=== PATIENT | female | born 1945 | race Caucasian/White ===

== ENCOUNTER 2016-07-30 10:13 | Outpatient (CLI) | payer MEDICARE, OTHER | END 2016-07-30 10:14 | disposition home or self-care (01) | DX: Z13.820 Encounter for screening for osteoporosis (principal); M85.88 Other specified disorders of bone density and structure, other site; Z78.0 Asymptomatic menopausal state ==

== ENCOUNTER 2016-07-30 10:15 | Outpatient (CLI) | payer MEDICARE, OTHER | END 2016-07-30 10:16 | disposition home or self-care (01) | DX: Z12.31 Encounter for screening mammogram for malignant neoplasm of breast (principal) ==

== ENCOUNTER 2017-04-27 10:17 | Outpatient (CLI) | payer MEDICARE, OTHER ==
[2017-04-27 10:49] LABS: BASOPHILS # (AUTO) 0.1 10^3/uL (0.0-0.1); BASOPHILS % (AUTO) 1.4 %; EOSINOPHILS # (AUTO) 0.2 10^3/uL (0.0-0.7); EOSINOPHILS % (AUTO) 3.8 %; HCT - HEMATOCRIT 38.7 % (37.0-47.0); LYMPHOCYTES # (AUTO) 2.2 10^3/uL (1.5-3.5); LYMPHOCYTES % (AUTO) 35.4 %; MEAN CORPUSCULAR HEMOGLOBIN 30.6 pg (27.0-31.0); MEAN CORPUSCULAR HGB CONC 33.7 g/dL (32.0-36.0); MEAN CORPUSCULAR VOLUME 90.6 fL (81.0-99.0); MEAN PLATELET VOLUME 7.8 fL (7.9-10.8); MONOCYTES # (AUTO) 0.4 10^3/uL (0.0-1.0); MONOCYTES % (AUTO) 7.1 %; NEUTROPHILS # (AUTO) 3.2 10^3/uL (1.5-6.6); NEUTROPHILS % (AUTO) 52.3 %; RED BLOOD COUNT 4.27 10^6/uL (4.20-5.40); RED CELL DISTRIBUTION WIDTH 13.7 % (12.0-15.0); UNCORRECTED WHITE BLOOD COUNT 6.1 x10^3/uL; WHITE BLOOD COUNT 6.1 x10^3/uL (4.8-10.8)
[2017-04-27 11:05] LABS: ALBUMIN/GLOBULIN RATIO 1.3 (1.0-2.2); BILIRUBIN,TOTAL 0.6 mg/dL (0.2-1.0); BUN - BLOOD UREA NITROGEN 29 mg/dL (6-20); CALCIUM 9.9 mg/dL (8.5-10.3); CARBON DIOXIDE - CO2 27 mmol/L (21-32); CHLORIDE 99 mmol/L (101-111); CHOL/HDL RATIO 7.9 (<4.4); CHOLESTEROL 365 mg/dL; CREATININE 1.1 mg/dL (0.4-1.0); GFR - MDRD 49 (>89); GLUCOSE 118 mg/dL (70-100); HDL CHOLESTEROL 46 mg/dL; SODIUM 137 mmol/L (135-145); TOTAL PROTEIN 7.5 g/dL (6.7-8.2); TRIGLYCERIDES 502 mg/dL
[2017-04-27 11:17] LABS: THYROID STIMULATING HORMONE 2.23 uIU/mL (0.34-5.60)
[2017-04-27 11:25] LABS: HEMOGLOBIN A1C 0.69 g/dL; LDL CHOLESTEROL,DIRECT 180 mg/dL
[2017-04-27 12:35] LABS: FOLATE > 49.60 ng/mL (5.90 - >24.8)
== END 2017-04-27 10:18 | disposition home or self-care (01) ==
LOC: LAB 10:17
PROVIDERS: ATTEND Physician Assistant Medical
DX: I10 Essential (primary) hypertension (principal); R73.01 Impaired fasting glucose; E78.5 Hyperlipidemia, unspecified; R41.3 Other amnesia; R25.2 Cramp and spasm; R53.83 Other fatigue
CPT/HCPCS: 36415; 80053; 80061; 82607; 82746; 83036; 83735; 84443; 85025

== ENCOUNTER 2017-08-26 09:44 | Outpatient (CLI) | payer MEDICARE, OTHER ==
[2017-08-26 10:10] LABS: BASOPHILS # (AUTO) 0.1 10^3/uL (0.0-0.1); BASOPHILS % (AUTO) 2.4 %; EOSINOPHILS # (AUTO) 0.2 10^3/uL (0.0-0.7); EOSINOPHILS % (AUTO) 4.4 %; HGB - HEMOGLOBIN 13.8 g/dL (12.0-16.0); LYMPHOCYTES # (AUTO) 2.2 10^3/uL (1.5-3.5); LYMPHOCYTES % (AUTO) 40.3 %; MEAN CORPUSCULAR HEMOGLOBIN 31.2 pg (27.0-31.0); MEAN CORPUSCULAR HGB CONC 34.4 g/dL (32.0-36.0); MEAN CORPUSCULAR VOLUME 90.6 fL (81.0-99.0); MEAN PLATELET VOLUME 7.5 fL (7.9-10.8); MONOCYTES # (AUTO) 0.4 10^3/uL (0.0-1.0); MONOCYTES % (AUTO) 7.6 %; NEUTROPHILS # (AUTO) 2.5 10^3/uL (1.5-6.6); NEUTROPHILS % (AUTO) 45.3 %; PLT - PLATELET COUNT 318 10^3/uL (130-450); RED BLOOD COUNT 4.43 10^6/uL (4.20-5.40); RED CELL DISTRIBUTION WIDTH 13.7 % (12.0-15.0); WHITE BLOOD COUNT 5.4 x10^3/uL (4.8-10.8)
[2017-08-26 10:34] LABS: HEMOGLOBIN A1C 0.68 g/dL; HEMOGLOBIN A1C % 6.3 % (4.6-6.2)
[2017-08-26 10:35] LABS: ALBUMIN 4.5 g/dL (3.2-5.5); ALBUMIN/GLOBULIN RATIO 1.5 (1.0-2.2); ALKALINE PHOSPHATASE 53 IU/L (42-121); ALT ALANINE AMINOTRANSFERASE 26 IU/L (10-60); AST ASPARTATE AMINOTRANSFERASE 26 IU/L (10-42); BILIRUBIN,TOTAL 0.7 mg/dL (0.2-1.0); BUN - BLOOD UREA NITROGEN 25 mg/dL (6-20); CALCIUM 9.7 mg/dL (8.5-10.3); CARBON DIOXIDE - CO2 28 mmol/L (21-32); CHLORIDE 99 mmol/L (101-111); CHOL/HDL RATIO 7.5 (<4.4); CHOLESTEROL 352 mg/dL; GFR - MDRD 54 (>89); GLUCOSE 117 mg/dL (70-100); HDL CHOLESTEROL 47 mg/dL; SODIUM 138 mmol/L (135-145); TOTAL PROTEIN 7.5 g/dL (6.7-8.2)
[2017-08-26 10:59] LABS: LDL CHOLESTEROL,DIRECT 187 mg/dL
== END 2017-08-26 09:45 | disposition home or self-care (01) ==
LOC: LAB 09:44
PROVIDERS: ATTEND Family Medicine
DX: I10 Essential (primary) hypertension (principal); E11.9 Type 2 diabetes mellitus without complications; E78.5 Hyperlipidemia, unspecified; F33.2 Major depressive disorder, recurrent severe without psychotic features
CPT/HCPCS: 36415; 80053; 80061; 82043; 83036; 83721; 84443; 85025

== ENCOUNTER 2017-12-17 12:34 | Outpatient (CLI) | payer MEDICARE, OTHER ==
--- NOTE | 2017-12-19 05:25 | MRI Report ---
Procedure Date: 12/17/2017 Accession Number: [id number] / [id number] Procedure: MRI - Brain W/O CPT Code: FULL RESULT: EXAM: MRI BRAIN WITHOUT CONTRAST EXAM DATE: 12/17/2017 01:48 PM. CLINICAL HISTORY: Transient ischemic attack, confusion, disorientation COMPARISON: Brain MRI 07/03/2012. TECHNIQUE: Multiplanar, multisequence T1-weighted and fluid-sensitive MR sequences of the brain were performed. Sequences optimized for routine evaluation. Other: None. IV Contrast: None. FINDINGS: Brain Volume: Normal for age. Parenchyma/Dura: No mass, acute infarct or hemorrhage. There is a single focus of increased T2 signal involving right frontal juxtacortical white matter, within normal limits for adults. Ventricles/Cisterns: No hydrocephalus. No abnormal extra-axial fluid collection or hemorrhage. Orbits: Symmetric and unremarkable. Sella Turcica: The pituitary gland, cavernous sinuses, suprasellar cistern and optic chiasm are unremarkable. IAC: Symmetric and unremarkable. Vasculature: Normal signal flow void is seen in the major arterial structures at the skull base. Sinuses: No acute appearing sinus disease. Bones: No focal pathologic appearing marrow signal changes. Other: None. IMPRESSION: 1. Normal brain MRI. RAD[facility]
== END 2017-12-17 12:35 | disposition home or self-care (01) ==
LOC: DI 12:34
PROVIDERS: ATTEND Family Medicine
DX: G45.9 Transient cerebral ischemic attack, unspecified (principal)
CPT/HCPCS: 70551

== ENCOUNTER 2017-12-17 15:15 | Outpatient (CLI) | payer MEDICARE, OTHER ==
--- NOTE | 2017-12-19 09:14 | Ultrasound Report ---
Procedure Date: 12/17/2017 Accession Number: [id number] / [id number] Procedure: US - Carotid Doppler Complete CPT Code: FULL RESULT: EXAM: CAROTID DOPPLER ULTRASOUND EXAM DATE: 12/17/2017 03:43 PM. CLINICAL HISTORY: TIA. COMPARISON: None. TECHNIQUE: Real-time sonographic vascular imaging was performed by the bottom loader through the carotid arterial system with a linear transducer utilizing color-flow, Doppler flow and spectral analysis. Multiple employee's representative static images were saved for review. FINDINGS: Right: RCCA Prox: PSV 70 cm/sec. RCCA Dist: PSV 69 cm/sec, EDV 22 cm/sec. RECA: PSV 91 cm/sec. R Bulb: PSV 49 cm/sec, EDV 19 cm/sec, ICA/CCA ratio 0.71. LYLY Prox: PSV 58 cm/sec, EDV 19 cm/sec, ICA/CCA ratio 0.80. LYLY Mid: PSV 52 cm/sec, EDV 21 cm/sec, ICA/CCA ratio 0.75. LYLY Dist: PSV 52 cm/sec, EDV 23 cm/sec, ICA/CCA ratio 0.75. RVA: PSV 52 cm/sec. RVA flow direction: Antegrade. Left: LCCA Prox: PSV 61 cm/sec. LCCA Dist: PSV 58 cm/sec, EDV 18 cm/sec. LECA: PSV 61 cm/sec. L Bulb: PSV 61 cm/sec, EDV 18 cm/sec, ICA/CCA ratio 1.0. LICA Prox: PSV 62 cm/sec, EDV 17 cm/sec, ICA/CCA ratio 1.0. LICA Mid: PSV 50 cm/sec, EDV 16 cm/sec, ICA/CCA ratio 0.86. LICA Dist: PSV 71 cm/sec, EDV 22 cm/sec, ICA/CCA ratio 1.2. LVA: PSV 26 cm/sec. LVA flow direction: Antegrade. Other: Calcified and noncalcified atheromatous plaque is noted particularly along the proximal left internal carotid artery and distal common carotid artery. IMPRESSION: No hemodynamically significant stenoses. Validated velocity measurements with angiographic measurements and velocity criteria are extrapolated from diameter data as defined by the Society of Radiologists in Ultrasound Consensus Conference Radiology 2003; 229;340-346. RADIA
== END 2017-12-17 23:59 | disposition home or self-care (01) ==
LOC: DI 15:15
PROVIDERS: ATTEND Family Medicine
DX: G45.9 Transient cerebral ischemic attack, unspecified (principal)
CPT/HCPCS: 93880

== ENCOUNTER 2018-01-23 09:25 | Outpatient (CLI) | payer MEDICARE, OTHER ==
[2018-01-23 09:52] LABS: BASOPHILS # (AUTO) 0.1 10^3/uL (0.0-0.1); BASOPHILS % (AUTO) 1.4 %; EOSINOPHILS # (AUTO) 0.2 10^3/uL (0.0-0.7); EOSINOPHILS % (AUTO) 3.9 %; HGB - HEMOGLOBIN 12.7 g/dL (12.0-16.0); LYMPHOCYTES # (AUTO) 1.8 10^3/uL (1.5-3.5); LYMPHOCYTES % (AUTO) 35.9 %; MEAN CORPUSCULAR HEMOGLOBIN 31.5 pg (27.0-31.0); MEAN CORPUSCULAR HGB CONC 33.4 g/dL (32.0-36.0); MEAN CORPUSCULAR VOLUME 94.5 fL (81.0-99.0); MEAN PLATELET VOLUME 7.4 fL (7.9-10.8); MONOCYTES # (AUTO) 0.5 10^3/uL (0.0-1.0); MONOCYTES % (AUTO) 8.9 %; NEUTROPHILS # (AUTO) 2.6 10^3/uL (1.5-6.6); NEUTROPHILS % (AUTO) 49.9 %; PLT - PLATELET COUNT 297 10^3/uL (130-450); RED BLOOD COUNT 4.03 10^6/uL (4.20-5.40); RED CELL DISTRIBUTION WIDTH 13.7 % (12.0-15.0); WHITE BLOOD COUNT 5.1 x10^3/uL (4.8-10.8)
[2018-01-23 10:08] LABS: HB2 TOTAL 13.4 g/dL; HEMOGLOBIN A1C 0.61 g/dL; HEMOGLOBIN A1C % 6.3 % (4.6-6.2)
[2018-01-23 10:13] LABS: ALBUMIN 4.3 g/dL (3.2-5.5); ALBUMIN/GLOBULIN RATIO 1.5 (1.0-2.2); ALKALINE PHOSPHATASE 44 IU/L (42-121); ALT ALANINE AMINOTRANSFERASE 31 IU/L (10-60); AST ASPARTATE AMINOTRANSFERASE 29 IU/L (10-42); CALCIUM 9.3 mg/dL (8.5-10.3); CARBON DIOXIDE - CO2 28 mmol/L (21-32); CHLORIDE 100 mmol/L (101-111); CHOLESTEROL 313 mg/dL; GFR - MDRD 54 (>89); GLUCOSE 102 mg/dL (70-100); HDL CHOLESTEROL 52 mg/dL; LDL CHOLESTEROL,CALCULATED 210 mg/dL; SODIUM 138 mmol/L (135-145); TOTAL PROTEIN 7.1 g/dL (6.7-8.2); VLDL CHOLESTEROL 51 mg/dL
[2018-01-23 11:21] LABS: BUN - BLOOD UREA NITROGEN 22 mg/dL (6-20)
== END 2018-01-23 09:26 | disposition home or self-care (01) ==
LOC: LAB 09:25
PROVIDERS: ATTEND Family Medicine
DX: E11.9 Type 2 diabetes mellitus without complications (principal)
CPT/HCPCS: 36415; 80053; 80061; 83036; 83721; 84443; 85025

== ENCOUNTER 2018-02-23 07:45 | Outpatient (CLI) | payer MEDICARE, OTHER ==
[2018-02-23 09:54] LABS: HB2 TOTAL 13.3 g/dL; HEMOGLOBIN A1C 0.56 g/dL
[2018-02-23] MEDS ORDERED: GADOBUTROL 10 MMOL/10 ML VIAL ONE (10:08)
[2018-02-23] MEDS ORDERED: GADOBUTROL 10 MMOL/10 ML VIAL IVP ONE (11:20)
--- NOTE | 2018-02-23 17:51 | MRI Report ---
Procedure Date: 02/23/2018 Accession Number: [id number] / [id number] Procedure: MRI - Angio Brain W/O (MRA) CPT Code: FULL RESULT: MR angiogram head Indication: 73-year-old female with confusion and tremor Technique: 3D time of flight MR angiography Comparison: 1. Neck MRA 02/23/2018 and unenhanced brain MRI 12/17/2017 Findings: The internal carotid arteries appear widely patent bilaterally. No ICA aneurysm is identified. 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 There is a dominant right A1 segment. An anterior communicating artery is demonstrated. There appears to be good flow related enhancement in the imaged A2 branches bilaterally. The middle cerebral arteries are unremarkable. No aneurysm is identified and there is no obvious occlusion or hemodynamically significant stenosis affecting main branches of either MCA. Flow-related enhancement is identified in the mid and upper V4 segments of hypoplastic, left vertebral artery. There appears to be absence of flow related enhancement in the proximal V4 segment and in the imaged V3 segment (see axial source images). This suggests the possibility of occlusion. However, review of source images for recent gadolinium-enhanced neck MRA suggests that the V3 and proximal V4 segments are probably patent. 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 Therefore, absence of flow related enhancement in the V3 and proximal V4 segments on this time of flight study likely relates to very slow flow rather than true occlusion. There is a large right vertebral artery which appears widely patent. Good flow related enhancement is seen in the right PICA. No definite left PICA is demonstrated. The left PICA territory may be supplied by the contralateral PICA or ipsilateral AICA (normal anatomical variants). The basilar artery, superior cerebellar arteries and posterior cerebral arteries appear widely patent. Neither posterior communicating artery is identified with certainty. Impression: 1. No significant pathology is identified involving main branches of the anterior circulation. 2. Absence of flow related enhancement in the V3 and proximal V4 segments of hypoplastic, left vertebral artery as described. Review of images from today's gadolinium-enhanced neck MRA suggests that this probably relates to slow flow, rather than occlusion of the V3 and proximal V4 segments. However, there probably is occlusion of the left vertebral artery at its origin (age indeterminate) with reconstitution in the V2 segment through collaterals. The absence of flow related enhancement on this time of flight MRA therefore appears to related to slow flow rather than occlusion. 3. Otherwise normal appearance of the intracranial vertebrobasilar circulation.
== END 2018-02-23 07:46 | disposition home or self-care (01) ==
LOC: DI 07:45
PROVIDERS: ATTEND Psychiatry & Neurology Neurology
DX: E78.5 Hyperlipidemia, unspecified (principal); R41.0 Disorientation, unspecified; R25.1 Tremor, unspecified
CPT/HCPCS: 36415; 70544; 70549; 82306; 83036; 93306; A9585

== ENCOUNTER 2018-02-27 10:15 | Outpatient (CLI) | payer MEDICARE, OTHER ==
[2018-02-27] MEDS ORDERED: GADOBUTROL 7.5 MMOL/7.5 ML VIAL ONE (11:14)
[2018-02-27] MEDS ORDERED: GADOBUTROL 7.5 MMOL/7.5 ML VIAL IVP ONE (12:27)
--- NOTE | 2018-03-16 14:33 | MRI Report ---
Reason: REPEAT EXAM - NO CHARGE CONFUSION TREMOR Procedure Date: 02/27/2018 Accession Number: [id number] / [id number] Procedure: MRI - No Charge Procedure CPT Code: FULL RESULT: FINDINGS: For results, please see the MR Angio Neck report from 02/23/2018. IMPRESSION: FINDINGS: For results, please see the MR Angio Neck report from 02/23/2018.
--- NOTE | 2018-03-16 14:33 | MRI Report ---
Reason: REPEAT EXAM - NO CHARGE CONFUSION TREMOR Procedure Date: 02/27/2018 Accession Number: [id number] / [id number] Procedure: MRI - Angio Neck W/WO (MRA) CPT Code: FULL RESULT: FINDINGS: For results, please see the MR Angio Neck report from 02/23/2018. IMPRESSION: FINDINGS: For results, please see the MR Angio Neck report from 02/23/2018.
== END 2018-02-27 10:16 | disposition home or self-care (01) ==
LOC: DI 10:15
PROVIDERS: ATTEND Psychiatry & Neurology Neurology
DX: R41.0 Disorientation, unspecified (principal); R25.1 Tremor, unspecified
CPT/HCPCS: 70549; A9585

== ENCOUNTER 2018-05-17 08:43 | Outpatient (CLI) | payer MEDICARE, OTHER ==
[2018-05-17 10:38] LABS: BUN - BLOOD UREA NITROGEN 28 mg/dL (6-20); CALCIUM 9.4 mg/dL (8.5-10.3); CARBON DIOXIDE - CO2 30 mmol/L (21-32); CHLORIDE 100 mmol/L (101-111); CHOL/HDL RATIO 5.5 (<4.4); CHOLESTEROL 287 mg/dL; GFR - MDRD 54 (>89); GLUCOSE 109 mg/dL (70-100); HDL CHOLESTEROL 52 mg/dL; LDL CHOLESTEROL,CALCULATED 177 mg/dL; LDL/HDL RATIO 3.4 (<4.4); SODIUM 139 mmol/L (135-145); VLDL CHOLESTEROL 58 mg/dL
[2018-05-17 10:39] LABS: HB2 TOTAL 13.7 g/dL; HEMOGLOBIN A1C 0.59 g/dL; HEMOGLOBIN A1C % 6.1 % (4.6-6.2)
== END 2018-05-17 08:44 | disposition home or self-care (01) ==
LOC: LAB 08:43
PROVIDERS: ATTEND Family Medicine
DX: E11.9 Type 2 diabetes mellitus without complications (principal); E78.49 Other hyperlipidemia
CPT/HCPCS: 36415; 80048; 80061; 83036; 83721

== ENCOUNTER 2018-08-09 14:50 | Outpatient (CLI) | payer MEDICARE, OTHER | END 2018-08-09 14:51 | disposition home or self-care (01) | LOC: LAB.WCP 14:50 | PROVIDERS: ATTEND Family Medicine | DX: R51 Headache (principal) | CPT/HCPCS: 36415; 85651; 86140 ==

== ENCOUNTER 2019-06-19 12:06 | Outpatient (CLI) | payer MEDICARE, OTHER ==
--- NOTE | 2019-06-20 15:04 | XRAY Report ---
Reason: ABDOMINAL PAIN, RUQ Procedure Date: 06/19/2019 Accession Number: [id number] / [id number] Procedure: XR - Abdomen 2 View X-Ray CPT Code: 04397 Final Report FULL RESULT: EXAM: ABDOMEN RADIOGRAPHY EXAM DATE: 06/19/2019 01:18 PM. CLINICAL HISTORY: Abdominal pain, right upper quadrant. COMPARISON: None. TECHNIQUE: 2 views. FINDINGS: Lung Bases: Unremarkable. Bowel Gas Pattern: Mild to moderate volume of stool throughout the colon to the rectum. No dilatation of small bowel. No gas/fluid levels. The stomach appears empty. Free Air: None. Other: Moderate leftward lumbar scoliosis. No radiopaque urinary collecting system calculi detected. Scattered vascular calcifications. IMPRESSION: Findings compatible with mild to moderate constipation. RAD[facility]
== END 2019-06-19 12:07 | disposition home or self-care (01) ==
LOC: DI 12:06
PROVIDERS: ATTEND Registered Nurse
DX: R10.11 Right upper quadrant pain (principal)
CPT/HCPCS: 74019

== ENCOUNTER 2019-06-22 06:44 | Outpatient (CLI) | payer MEDICARE, OTHER ==
--- NOTE | 2019-06-24 01:41 | Ultrasound Report ---
Reason: ABDOMINAL PAIN, RUQ Procedure Date: 06/22/2019 Accession Number: [id number] / [id number] Procedure: US - Abdomen Complete CPT Code: Final Report FULL RESULT: EXAM: ABDOMEN ULTRASOUND EXAM DATE: 06/22/2019 07:54 AM. CLINICAL HISTORY: Abdominal pain, right upper quadrant. COMPARISON: 04/21/2010 10:41 AM. TECHNIQUE: Real-time scanning was performed with static images obtained. FINDINGS: Liver: Liver parenchyma is heterogeneous and mildly hyperechoic. No discrete liver masses or intrahepatic bile duct dilation. However, evaluation for masses is limited secondary to the echogenicity. Right liver measures 14.8 cm. Main portal vein flow: Hepatopetal. Gallbladder: Normal. No stones, wall thickening, or sonographic Ordoñez's sign. Biliary System: Common bile duct measures 3 mm. No intrahepatic or extrahepatic ductal dilatation. Pancreas: Distal pancreas not well-seen. Limitations secondary to bowel gas. Remaining pancreas unremarkable. Kidneys: Right: 12.2 cm longitudinally. Possible right extrarenal pelvis measuring up to 0.8 cm. No dilated ureter. No renal mass or stones. Normal echotexture. Left: 10.5 cm longitudinally. Lobular contour. Echogenic, focus in the left upper lateral renal cortex measuring 0.6 x 0.5 x 0.6 cm. Mild flow is noted at the periphery. Extrarenal pelvis as seen on the prior CT measuring 1.2 cm in diameter. No stones or renal mass. Spleen: 8.9 x 3 x 9.2 cm. Normal in size and echotexture. Aorta and Inferior Vena Cava: Atheromatous plaques are noted. No abdominal aortic aneurysm. Normal IVC. Other: Study limited by bowel gas. IMPRESSION: 1. Mildly echogenic liver. No mass. Possible fatty infiltration. 2. Normal gallbladder. Limited visualization of the pancreas. 3. Echogenic 0.6 cm minimally vascular left upper renal mass. Incidental homogenous hyperechoic renal lesions measuring 1.0 cm or less are almost always clinically insignificant, commonly small angiomyolipomas. Carlos Souza, Chandrakant Yen A. M., Chandrakant [place]
== END 2019-06-22 06:45 | disposition home or self-care (01) ==
LOC: DI 06:44
PROVIDERS: ATTEND Registered Nurse
DX: R10.11 Right upper quadrant pain (principal); N28.89 Other specified disorders of kidney and ureter
CPT/HCPCS: 76700

== ENCOUNTER 2020-01-11 09:42 | Outpatient (CLI) | payer MEDICARE, OTHER ==
[2020-01-11 09:57] LABS: BASOPHILS # (AUTO) 0.1 10^3/uL (0.0-0.1); BASOPHILS % (AUTO) 1.2 %; EOSINOPHILS # (AUTO) 0.2 10^3/uL (0.0-0.7); EOSINOPHILS % (AUTO) 4.4 %; HGB - HEMOGLOBIN 12.6 g/dL (12.0-16.0); LYMPHOCYTES # (AUTO) 1.9 10^3/uL (1.5-3.5); LYMPHOCYTES % (AUTO) 38.1 %; MEAN CORPUSCULAR HEMOGLOBIN 32.1 pg (27.0-31.0); MEAN CORPUSCULAR HGB CONC 33.3 g/dL (32.0-36.0); MEAN CORPUSCULAR VOLUME 96.2 fL (81.0-99.0); MONOCYTES # (AUTO) 0.4 10^3/uL (0.0-1.0); MONOCYTES % (AUTO) 8.7 %; NEUTROPHILS # (AUTO) 2.4 10^3/uL (1.5-6.6); NEUTROPHILS % (AUTO) 47.4 %; PLT - PLATELET COUNT 312 10^3/uL (130-450); RED BLOOD COUNT 3.93 10^6/uL (4.20-5.40); RED CELL DISTRIBUTION WIDTH 13.2 % (12.0-15.0)
[2020-01-11 10:15] LABS: ALBUMIN 4.3 g/dL (3.2-5.5); ALBUMIN/GLOBULIN RATIO 1.5 (1.0-2.2); ALKALINE PHOSPHATASE 53 IU/L (42-121); ALT ALANINE AMINOTRANSFERASE 23 IU/L (10-60); AST ASPARTATE AMINOTRANSFERASE 22 IU/L (10-42); BILIRUBIN,TOTAL 0.6 mg/dL (0.2-1.0); BUN - BLOOD UREA NITROGEN 28 mg/dL (6-20); CALCIUM 9.4 mg/dL (8.5-10.3); CARBON DIOXIDE - CO2 27 mmol/L (21-32); CHLORIDE 101 mmol/L (101-111); CHOL/HDL RATIO 7.5 (<4.4); CHOLESTEROL 412 mg/dL; GLUCOSE 117 mg/dL (70-100); HDL CHOLESTEROL 55 mg/dL; LDL CHOLESTEROL,CALCULATED 294 mg/dL; LDL/HDL RATIO 5.3 (<4.4); SODIUM 138 mmol/L (135-145); TOTAL PROTEIN 7.2 g/dL (6.7-8.2); VLDL CHOLESTEROL 63 mg/dL
== END 2020-01-11 09:43 | disposition home or self-care (01) ==
LOC: LAB 09:42
PROVIDERS: ATTEND Registered Nurse
DX: G45.9 Transient cerebral ischemic attack, unspecified (principal); E11.9 Type 2 diabetes mellitus without complications; I10 Essential (primary) hypertension; E78.5 Hyperlipidemia, unspecified
CPT/HCPCS: 36415; 80053; 80061; 83721; 84443; 85025

== ENCOUNTER 2020-03-12 07:18 | Emergency (ER) | payer MEDICARE, OTHER ==
[2020-03-12] MEDS ORDERED: ONDANSETRON 4 MG/2 ML VIAL IVP STA (07:37)
[2020-03-12] MEDS ORDERED: DICYCLOMINE 10 MG CAPSULE PO STA (07:37)
[2020-03-12] MEDS ORDERED: SODIUM CHLORIDE 0.9% 1,000 ML IV STA (07:37)
[2020-03-12] MEDS ORDERED: LOPERAMIDE 2 MG CAPSULE PO STA (07:37)
--- NOTE | 2020-03-12 07:43 | ED Physician Documentation ---
PD HPI ABD PAIN - Stated complaint Stated Complaint: ABD PX/BLOOD IN STOOL - Chief complaint Chief Complaint: Abd Pain - History obtained from History obtained from: Patient - Additional information Additional information: 75-year-old woman, last colonoscopy 10 years ago with diverticula, also has milder upper abdominal pain frequently presents with central abdominal cramping, vomiting and bloody diarrhea starting last evening. Pain is nonradiating. She says that she had a bowel movement in the middle of the night that was quite bloody but subsequent bowel movements have been less so. Review of Systems Ten Systems: 10 systems reviewed and negative Constitutional: denies: Fever, Chills GI: reports: Abdominal Pain, Nausea, Vomiting, Diarrhea, Bloody / black stool. denies: Hematemesis PD PAST MEDICAL HISTORY - Past Medical History Cardiovascular: Hypertension, High cholesterol Psych: Depression - Past Surgical History Past Surgical History: Yes General: Appendectomy /[employer]ATOR: Hysterectomy - Present Medications Home Medications: Ambulatory Orders Medication Instructions Recorded Confirmed Escitalopram [Lexapro] 10 mg PO DAILY 09/10/13 08/07/18 Glucosamine Sulfate Dipot Chlr 1,000 mg PO DAILY 09/10/13 08/07/18 [Glucosamine] buPROPion [Wellbutrin Sr] 150 mg PO DAILY 09/10/13 08/07/18 Albuterol Sulfate [Proventil Hfa 1 - 2 puffs IH Q4H PRN #1 06/28/16 08/07/18 Inhaler] hfa.aer.ad Atorvastatin [Lipitor] 10 mg PO .MON,WED,Tue08/06/18 08/07/18 Omeprazole 40 mg PO DAILY 08/06/18 08/07/18 Acetaminophen/Cod 300/30 [Tylenol 1 each PO Q8H PRN #4 tablet 08/07/18 #3] Cholecalciferol (Vitamin D3) 2,000 - 5,000 unit PO DAILY 08/07/18 08/07/18 [Vitamin D3] Lisinopril/Hydrochlorothiazide 1 tab PO DAILY 08/07/18 08/07/18 [Lisinopril-Hctz 20-25 mg Tab] Multivitamin/Iron/Folic Acid 1 tab PO DAILY 08/07/18 08/07/18 [Centrum Adults Tablet] Dicyclomine HCl 20 mg PO QID PRN #15 tablet 09/09/20 Ondansetron Odt [Zofran] 4 mg TL Q6H PRN #10 tablet 03/12/20 - Allergies Allergies/Adverse Reactions: Allergies Allergy/AdvReac Type Severity Reaction Status Date / Time Penicillins Allergy Intermediate Rash Verified 03/12/20 07:37 Sulfa (Sulfonamide AdvReac Intermediate Nausea Verified 03/12/20 07:37 Antibiotics) - Social History Does the pt smoke?: No Smoking Status: Former smoker Does the pt drink ETOH?: Yes PD ED PE NORMAL - Vitals Vital signs reviewed: Yes - General General: Alert and oriented X 3, No acute distress - HEENT HEENT: PERRL, EOMI - Neck Neck: Supple, no meningeal sign, No bony TTP - Cardiac Cardiac: RRR, No murmur - Respiratory Respiratory: No respiratory distress, Clear bilaterally - Abdomen Abdomen: Soft, Non tender - Back Back: No CVA TTP, No spinal TTP - Derm Derm: Normal color, Warm and dry - Extremities Extremities: No edema, No calf tenderness / cord - Neuro Neuro: Alert and oriented X 3, Normal speech Results - Vitals Vitals: Vital Signs - 24 hr 03/12/20 03/12/20 03/12/20 07:23 08:30 09:00 Temperature 36.7 C Heart Rate 107 H 79 70 Respiratory 20 15 18 Rate Blood Pressure 157/101 H 141/75 H 147/71 H O2 Saturation 95 94 97 03/12/20 09:30 Temperature Heart Rate 77 Respiratory 17 Rate Blood Pressure 123/70 O2 Saturation 99 Oxygen O2 Source Room air - Labs Labs: Laboratory Tests 03/12/20 03/12/20 03/12/20 07:51 07:51 07:51 WBC 11.2 H RBC 4.26 Hgb 13.1 Hct 40.1 MCV 94.1 MCH 30.8 MCHC 32.7 RDW 13.1 Plt Count 356 MPV 9.7 Neut # (Auto) 8.4 H Lymph # (Auto) 2.0 [place] # (Auto) 0.6 Eos # (Auto) 0.2 Baso # (Auto) 0.1 Absolute Nucleated RBC 0.00 Nucleated RBC % 0.0 Sodium 136 Potassium 3.9 Chloride 100 L Carbon Dioxide 28 Anion Gap 8.0 BUN 19 Creatinine 1.1 H Estimated GFR (MDRD) 48 L Glucose 144 H Calcium 10.0 Total Bilirubin 0.7 AST 24 ALT 23 Alkaline Phosphatase 63 Total Protein 7.5 Albumin 4.2 Globulin 3.3 Albumin/Globulin Ratio 1.3 Lipase 46 Blood Type A POSITIVE Antibody Screen NEGATIVE - Rads (name of study) CT A/P Radiology: EMP read contemporaneously (Diffuse colonic wall thickening and edema suggestive of infectious or inflammatory colitis. Atherosclerosis. Bibasilar dependent atelectasis versus scarring.) PD MEDICAL DECISION MAKING - ED course ED course: 75-year-old woman presents with symptoms predominantly consistent with gastroenteritis. Stool cultures pending on discharge. She was nontender. Feeling much better after meds. CT confirming colitis. H&H is okay, she had a loose bowel movement here which was not visually bloody that I saw. Departure - Departure Disposition: 01 Home, Self Care Clinical Impression: Colitis, Gastroenteritis Condition: Good Record reviewed to determine appropriate education?: Yes Instructions: ED Gastroenteritis Non Infec Prescriptions: Dicyclomine HCl 20 mg PO QID PRN #15 tablet PRN Reason: Abdominal Pain Ondansetron Odt [Zofran] 4 mg TL Q6H PRN #10 tablet PRN Reason: Nausea / Vomiting Comments: Diagnostics today show that your colon is inflamed, this is likely from a self- limited viral etiology given the vomiting as well, stool culture is pending and we will call if positive. Return in 24 hours if not better. Follow-up with your doctor, consider follow-up upper and lower endoscopies given your chronic upper abdominal burning pain and this episode since it has been 10 years since your last colonoscopy. Discharge Date/Time: 03/12/20 09:47
[2020-03-12] MEDS ORDERED: IOVERSOL 320 100 ML VIAL IVP ONE ×2 (08:02→11:15)
[2020-03-12 08:17] LABS: BASOPHILS # (AUTO) 0.1 10^3/uL (0.0-0.1); BASOPHILS % (AUTO) 0.7 %; EOSINOPHILS # (AUTO) 0.2 10^3/uL (0.0-0.7); EOSINOPHILS % (AUTO) 1.3 %; HGB - HEMOGLOBIN 13.1 g/dL (12.0-16.0); LYMPHOCYTES % (AUTO) 17.3 %; MEAN CORPUSCULAR HEMOGLOBIN 30.8 pg (27.0-31.0); MEAN CORPUSCULAR HGB CONC 32.7 g/dL (32.0-36.0); MEAN CORPUSCULAR VOLUME 94.1 fL (81.0-99.0); MEAN PLATELET VOLUME 9.7 fL (7.9-10.8); MONOCYTES # (AUTO) 0.6 10^3/uL (0.0-1.0); MONOCYTES % (AUTO) 5.6 %; NEUTROPHILS # (AUTO) 8.4 10^3/uL (1.5-6.6); NEUTROPHILS % (AUTO) 74.6 %; PLT - PLATELET COUNT 356 10^3/uL (130-450); RED BLOOD COUNT 4.26 10^6/uL (4.20-5.40); RED CELL DISTRIBUTION WIDTH 13.1 % (12.0-15.0); WHITE BLOOD COUNT 11.2 x10^3/uL (4.8-10.8)
[2020-03-12 08:32] LABS: ALBUMIN 4.2 g/dL (3.2-5.5); BILIRUBIN,TOTAL 0.7 mg/dL (0.2-1.0); CREATININE 1.1 mg/dL (0.4-1.0); TOTAL PROTEIN 7.5 g/dL (6.7-8.2)
[2020-03-12 08:33] LABS: ALBUMIN/GLOBULIN RATIO 1.3 (1.0-2.2)
--- NOTE | 2020-03-12 09:26 | CT Report ---
PROCEDURE: Abdomen/Pelvis W INDICATIONS: IV only, abd pain CONTRAST: IV CONTRAST: Optiray 320 ml: 100 PO CONTRAST: *NO PO CONTRAST TECHNIQUE: After the administration of IV contrast, 5 mm thick sections acquired from the diaphragms to the symp hysis. 5 mm thick coronal and sagittal reformats were acquired. For radiation dose reduction, the f ollowing was used: automated exposure control, adjustment of mA and/or kV according to patient size. COMPARISON: None. FINDINGS: Image quality: Excellent. ABDOMEN: Lung bases: Bibasilar dependent atelectasis/scarring is seen. No pleural effusion or pneumothorax. H eart size is normal. Solid organs: Liver and spleen are normal in size and enhancement. Gallbladder is contracted and sh ows no gross abnormality. Biliary system is non dilated. Pancreas enhances normally. No adrenal no dules. Kidneys demonstrate normal size and enhancement, without hydronephrosis. Peritoneum and bowel: A small hiatal hernia is seen. There is no gross gastric or small bowel wall th ickening. Diffuse colonic wall thickening and edema is seen with mild pericolonic fat stranding sugge stive of infectious or inflammatory colitis. Sigmoid diverticulosis is seen, no CT evidence of acute diverticulitis. No free fluid or free air. Appendix is surgically absent. Nodes and vessels: No retroperitoneal or mesenteric adenopathy by size criteria. Aorta and inferior vena cava are normal in size. Moderate amount of atherosclerotic calcifications in the abdominal ao rta is seen. Miscellaneous: No ventral hernias. PELVIS: Genitourinary: Bladder wall thickness is normal. Miscellaneous: No inguinal hernias or adenopathy. Bones: No suspicious bony lesions. No vertebral body compression fractures. Grade 1 anterolisthesi s of L4 on L5 is seen. Degenerative disc disease throughout lumbar spine is seen. IMPRESSION: 1. Diffuse colonic wall thickening and edema suggestive of infectious or inflammatory colitis. No bow el obstruction. No free fluid or free air. Sigmoid diverticulosis, no CT evidence of acute diverticul itis. 2. Moderate amount of atherosclerotic disease in the abdominal aorta. No abdominal aortic aneurysm or dissection. 3. Bibasilar dependent atelectasis/scarring. Reviewed by: Domingo Nieto MD on 03/12/2020 9:24 AM PDT Approved by: Domingo Nieto MD on 03/12/2020 9:24 AM PDT Station ID: [id number]
[2020-03-12 09:34] VITALS: BP 123/70
== END 2020-03-12 09:47 | disposition home or self-care (01) ==
LOC: ED 07:18
DX: K52.9 Noninfective gastroenteritis and colitis, unspecified (principal); Z87.891 Personal history of nicotine dependence
CPT/HCPCS: 36415; 74177; 80053; 81599; 83690; 85025; 86850; 86900; 86901; 87493; 96361; 96374; 99284; A9270; Q9967; 87045; 87046

== ENCOUNTER 2020-05-15 07:29 | Day surgery (SDC) | payer MEDICARE, OTHER ==
[2020-05-15] MEDS ORDERED: LACTATED RINGERS 1,000 ML IV ONE ×2 (07:30→09:49)
[2020-05-15] MEDS ORDERED: BENZOCAINE/TETRACAINE/BUTAMBEN 20 GM TOP ONE ×2 (08:56→09:07)
[2020-05-15] MEDS ORDERED: LIDO GARGLE 30 ML BOTTLE TOP ONE ×2 (08:57→09:07)
[2020-05-15] MEDS ORDERED: MIDAZOLAM 2 MG/2 ML VIAL IVP ONE (09:04)
[2020-05-15] MEDS ORDERED: fentaNYL 250 MCG/5 ML VIAL IVP ONE (09:04)
[2020-05-15] MEDS ORDERED: LIDO GARGLE 30 ML BOTTLE ONE (09:42)
[2020-05-15 10:32] VITALS: BP 93/66
== END 2020-05-15 07:30 | disposition home or self-care (01) ==
LOC: SDS 07:29
PROVIDERS: ATTEND Surgery
PROC: 0DB68ZX Excision of Stomach, Via Natural or Artificial Opening Endoscopic, Diagnostic (ICD-10-PCS; 2020-05-15)
PROC: 0DB38ZX Excision of Lower Esophagus, Via Natural or Artificial Opening Endoscopic, Diagnostic (ICD-10-PCS; 2020-05-15)
PROC: 0DB58ZX Excision of Esophagus, Via Natural or Artificial Opening Endoscopic, Diagnostic (ICD-10-PCS; 2020-05-15)
PROC: 0DJD8ZZ Inspection of Lower Intestinal Tract, Via Natural or Artificial Opening Endoscopic (ICD-10-PCS; principal; 2020-05-15 08:30)
PROC: 0DB98ZX Excision of Duodenum, Via Natural or Artificial Opening Endoscopic, Diagnostic (ICD-10-PCS; 2020-05-15 08:30)
DX: R10.9 Unspecified abdominal pain (principal); R11.2 Nausea with vomiting, unspecified; R14.0 Abdominal distension (gaseous); K62.5 Hemorrhage of anus and rectum; K57.30 Diverticulosis of large intestine without perforation or abscess without bleeding; K22.10 Ulcer of esophagus without bleeding; K21.9 Gastro-esophageal reflux disease without esophagitis; K44.9 Diaphragmatic hernia without obstruction or gangrene; E11.9 Type 2 diabetes mellitus without complications; I10 Essential (primary) hypertension; Z87.891 Personal history of nicotine dependence; Z87.19 Personal history of other diseases of the digestive system
CPT/HCPCS: 43239; 45378; A9270; J3010; J7120

== ENCOUNTER 2020-06-11 09:07 | Outpatient (CLI) | payer MEDICARE, OTHER ==
[2020-06-11 10:09] LABS: CALCIUM 9.4 mg/dL (8.5-10.3); CREATININE 1.1 mg/dL (0.4-1.0)
[2020-06-11 12:35] LABS: HEMOGLOBIN A1c% 6.4 % (4.27-6.07)
[2020-06-11 16:52] LABS: CREATININE,URINE 104.5 mg/dL; MICROALBUM/CREATININE RATIO,UR 8.6 ug/mg (<30.0); MICROALBUMIN,URINE 0.9 mg/dL (0-300.0)
== END 2020-06-11 09:08 | disposition home or self-care (01) ==
LOC: LAB 09:07
PROVIDERS: ATTEND Registered Nurse
DX: I10 Essential (primary) hypertension (principal); E11.9 Type 2 diabetes mellitus without complications; E78.5 Hyperlipidemia, unspecified; F33.2 Major depressive disorder, recurrent severe without psychotic features
CPT/HCPCS: 36415; 80048; 82043; 82570; 83036

== ENCOUNTER 2020-07-01 08:46 | Outpatient (CLI) | payer MEDICARE, OTHER ==
--- NOTE | 2020-07-02 14:48 | Nuclear Medicine Report ---
PROCEDURE: Gastric Empty Small Bowel INDICATIONS: ABDOMINAL PAIN, BLOATING RADIOPHARMACEUTICAL: 1.1 mCi Tc-99m sulfur colloid in an egg sandwich. TECHNIQUE: A Tc-99m labeled sulfur colloid labeled egg sandwich or oatmeal was served to the patient. Anterior and posterior planar images of the abdomen were obtained at 0 minutes and 30 minutes, then at hourly intervals up to 4 hours. The patient was upright and ambulating during the interval. COMPARISON: None available. FINDINGS: The stomach has normal size, morphology, and position. There is normal emptying of solid gastric con tents from the stomach by visual inspection. No gastroesophageal reflux is visualized. The percentage of tracer retained at specific time points are as follows: Time point Percent gastric retention Normal range 30 minutes 78.1% 70% or more 1 hour 52.8 % 30% to 90% 2 hours 7.3% 60% or less 3 hours 1.5% 30% or less 4 hours 0.6% 10% or less IMPRESSION: Normal gastric emptying study. Reviewed by: Paula Boateng MD on 07/02/2020 2:47 PM PST Approved by: Paula Boateng MD on 07/02/2020 2:47 PM PST Station ID: [id number]
== END 2020-07-01 08:47 | disposition home or self-care (01) ==
LOC: DI 08:46
PROVIDERS: ATTEND Surgery
DX: R14.0 Abdominal distension (gaseous) (principal); R10.9 Unspecified abdominal pain
CPT/HCPCS: 78265

== ENCOUNTER 2021-03-29 18:33 | Emergency (ER) | payer MEDICARE, OTHER ==
[2021-03-29] MEDS ORDERED: METOCLOPRAMIDE 10 MG/2 ML VIAL IVP STA (18:59)
--- NOTE | 2021-03-29 19:00 | ED Physician Documentation ---
PD HPI FOCAL NEURO - Stated complaint Stated Complaint: CONFUSION/HEADACHE/NAUSEA/DIARRHEA - Chief complaint Chief Complaint: Neuro - History obtained from History obtained from: Patient - Additional information Additional information: 76-year-old woman with history of Transient global amnesia and reported history of TIA developed a gradual onset global headache while in gnosticist this morning around 10 AM. Subsequently at times during the day had trouble remembering things that she would usually be able to remember such as her granddaughters names although she is apt able to recite them for me now. She denies light sensitivity or nausea. She does have chronic diarrhea undergoing a work-up as well with GI. Denies fevers, chills, neck stiffness. 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 - Present Medications Home Medications: Ambulatory Orders Medication Instructions Recorded Confirmed Escitalopram [Lexapro] 10 mg PO DAILY 09/10/13 05/15/20 Glucosamine Sulfate Dipot Chlr 1,000 mg PO DAILY 09/10/13 05/15/20 [Glucosamine] buPROPion [Wellbutrin Sr] 150 mg PO DAILY 09/10/13 05/15/20 Albuterol Sulfate [Proventil Hfa 1 - 2 puffs IH Q4H PRN #1 06/28/16 05/15/20 Inhaler] hfa.[email or web address].ad Omeprazole 40 mg PO DAILY 08/06/18 05/15/20 Acetaminophen/Cod 300/30 [Tylenol 1 each PO Q8H PRN #4 tablet 08/07/18 05/15/20 #3] Cholecalciferol (Vitamin D3) 2,000 - 5,000 unit PO DAILY 08/07/18 05/15/20 [Vitamin D3] Lisinopril/Hydrochlorothiazide 1 tab PO DAILY 08/07/18 05/15/20 [Lisinopril-Hctz 20-25 mg Tab] - Allergies Allergies/Adverse Reactions: Allergies Allergy/AdvReac Type Severity Reaction Status Date / Time Penicillins Allergy Intermediate Rash Verified 03/29/21 18:40 Sulfa (Sulfonamide AdvReac Intermediate Nausea Verified 03/29/21 18:40 Antibiotics) - Social History Does the pt smoke?: No Smoking Status: Former smoker Does the pt drink ETOH?: Yes PD ED PE NORMAL - Vitals Vital signs reviewed: Yes - General General: Alert and oriented X 3, No acute distress - HEENT HEENT: PERRL, EOMI - Neck Neck: Supple, no meningeal sign, No bony TTP - Cardiac Cardiac: RRR, No murmur - Respiratory Respiratory: No respiratory distress, Clear bilaterally - Abdomen Abdomen: Normal bowel sounds, Soft, Non tender - Back Back: No CVA TTP, No spinal TTP - Derm Derm: Normal color, Warm and dry - Extremities Extremities: No edema, No calf tenderness / cord - Neuro Neuro: Alert and oriented X 3 (He does not know the date specifically, but she knows that it is Tuesday and March and the year.), No motor deficit, No sensory deficit, Normal speech Eye Opening: Spontaneous Motor: Obeys Commands Verbal: Oriented GCS Score: 15 - Psych Psych: Normal mood NIHSS - Time Time: 18:55 - Level of Consciousness Level of consciousness: (0) Alert, Keenly responsive LOC Questions: (0) Answers both Q's correct LOC Commands: (0) Performs both correctly - Gaze Best Gaze: (0) Normal - Visual Visual: (0) No loss - Facial Palsy Facial Palsy: (0) Normal, symmetrical movement - Motor Arms (both separate) Motor Arm (right): (0) No drift Motor Arm (left): (0) No drift - Motor Legs (both separate) Motor Leg (right): (0) No drift Motor Leg (left): (0) No drift - Limb Ataxia Limb Ataxia: (0) Absent - Sensory Sensory: (0) Normal - Best Language Best Language: (0) No aphasia - Dysarthria Dysarthria: (0) Normal - Extinction and Inattention (formally neg Extinction and inattention: (0) No abnormality - Total Score/Results Total Score/Result: 0 Results - Vitals Vitals: Vital Signs - 24 hr 03/29/21 03/29/21 18:40 19:34 Heart Rate 90 90 Respiratory 16 16 Rate Blood Pressure 149/80 H 119/74 O2 Saturation 96 98 Oxygen O2 Source Room air - Labs Labs: Laboratory Tests 03/29/21 03/29/21 19:00 19:00 WBC 6.4 RBC 4.01 L Hgb 12.8 Hct 38.9 MCV 97.0 MCH 31.9 H MCHC 32.9 RDW 13.0 Plt Count 330 MPV 9.1 Neut # (Auto) 3.4 Lymph # (Auto) 2.1 Mclean # (Auto) 0.5 Eos # (Auto) 0.3 Baso # (Auto) 0.1 Absolute Nucleated RBC 0.00 Nucleated RBC % 0.0 Sodium 138 Potassium 4.2 Chloride 99 L Carbon Dioxide 29 Anion Gap 10.0 BUN 20 Creatinine 1.1 H Estimated GFR (MDRD) 48 L Glucose 119 H Calcium 9.9 - Rads (name of study) CT head Radiology: EMP read contemporaneously (Mild volume loss without acute disease) PD MEDICAL DECISION MAKING - ED course Complexity details: reviewed old records (Records reviewed, if this is transient global amnesia which most closely fits the pattern, this would be her fourth episode. Admitted in 2019 for similar episode with negative work-up at that time.) ED course: This is a essie 76-year-old woman with history of transient global amnesia who presents with mild seemingly resolved confusion and headache which resolved with Toradol and Reglan here. She requested discharge. Departure - Departure Disposition: 01 Home, Self Care Clinical Impression: Altered mental status Qualifiers: Altered mental status type: unspecified Qualified Code(s): R41.82 - Altered mental status, unspecified Headache Qualifiers: Headache type: unspecified Headache chronicity pattern: acute headache Intractability: not intractable Qualified Code(s): R51.9 - Headache, unspecified Condition: Good Record reviewed to determine appropriate education?: Yes Instructions: ED Cephalgia Unspecified Comments: Thankfully it seems that your confusion has resolved and your headache is much better. Please return if worsening and follow-up with your primary care physician regardless. No driving until completely better or 24 hours have passed since her symptoms.
[2021-03-29 19:11] LABS: BASOPHILS # (AUTO) 0.1 10^3/uL (0.0-0.1); BASOPHILS % (AUTO) 1.3 %; EOSINOPHILS # (AUTO) 0.3 10^3/uL (0.0-0.7); HCT - HEMATOCRIT 38.9 % (37.0-47.0); HGB - HEMOGLOBIN 12.8 g/dL (12.0-16.0); LYMPHOCYTES # (AUTO) 2.1 10^3/uL (1.5-3.5); LYMPHOCYTES % (AUTO) 32.3 %; MEAN CORPUSCULAR HEMOGLOBIN 31.9 pg (27.0-31.0); MEAN CORPUSCULAR HGB CONC 32.9 g/dL (32.0-36.0); MEAN PLATELET VOLUME 9.1 fL (7.9-10.8); MONOCYTES # (AUTO) 0.5 10^3/uL (0.0-1.0); MONOCYTES % (AUTO) 8.2 %; NEUTROPHILS # (AUTO) 3.4 10^3/uL (1.5-6.6); NEUTROPHILS % (AUTO) 52.9 %; PLT - PLATELET COUNT 330 10^3/uL (130-450); RED BLOOD COUNT 4.01 10^6/uL (4.20-5.40); WHITE BLOOD COUNT 6.4 x10^3/uL (4.8-10.8)
[2021-03-29 19:19] LABS: CALCIUM 9.9 mg/dL (8.5-10.3); CREATININE 1.1 mg/dL (0.4-1.0); POTASSIUM 4.2 mmol/L (3.5-5.0)
[2021-03-29] MEDS ORDERED: KETOROLAC 15 MG/ML VIAL IVP STA (19:26)
--- NOTE | 2021-03-29 19:29 | CT Report ---
PROCEDURE: Head W/O Stroke Protocol INDICATIONS: headache TECHNIQUE: Noncontrast 4.5 mm thick angled axial sections acquired from the foramen magnum to the vertex, with c oronal reformats. For radiation dose reduction, the following was used: automated exposure control, adjustment of mA and/or kV according to patient size. COMPARISON: CT head 08/06/2018. FINDINGS: Image quality: Diagnostic. CSF spaces: Basal cisterns are patent. No extra-axial fluid collections. There is mild cerebral vol ume loss with prominence of the ventricles and sulci. Brain: No intracranial hemorrhage, mass, or mass effect. Mendez-white matter interface appears preserv ed. Skull and face: Calvarium and visualized facial bones are intact, without suspicious lesions. Sinuses: Visualized sinuses and mastoids are clear. IMPRESSION: 1. No acute intracranial abnormality. 2. Mild cerebral volume loss. Findings discussed with Dr. Bejarano on 03/29/2021 at 7:25 PM. This study fulfills neurological imaging criteria for inclusion or exclusion of acute stroke therapie s based on available published neurological imaging guidelines. Reviewed by: Jd Ruggiero MD on 03/29/2021 7:27 PM PDT Approved by: Jd Ruggiero MD on 03/29/2021 7:27 PM PDT Station ID: [id number]
[2021-03-29 19:36] VITALS: BP 119/74
== END 2021-03-29 20:11 | disposition home or self-care (01) ==
LOC: ED 18:33
DX: R41.82 Altered mental status, unspecified (principal); R51.9 Headache, unspecified; Z87.891 Personal history of nicotine dependence
CPT/HCPCS: 36415; 70450; 80048; 85025; 96374; 96375; 99284; 99285; J2765

== ENCOUNTER 2022-04-02 10:30 | Outpatient (CLI) | payer MEDICARE, OTHER ==
[2022-04-02 10:51] LABS: BASOPHILS # (AUTO) 0.1 10^3/uL (0.0-0.1); BASOPHILS % (AUTO) 1.3 %; EOSINOPHILS # (AUTO) 0.3 10^3/uL (0.0-0.7); EOSINOPHILS % (AUTO) 4.5 %; HCT - HEMATOCRIT 38.2 % (37.0-47.0); HGB - HEMOGLOBIN 12.7 g/dL (12.0-16.0); LYMPHOCYTES # (AUTO) 1.8 10^3/uL (1.5-3.5); LYMPHOCYTES % (AUTO) 31.9 %; MEAN CORPUSCULAR HEMOGLOBIN 31.7 pg (27.0-31.0); MEAN CORPUSCULAR HGB CONC 33.2 g/dL (32.0-36.0); MEAN CORPUSCULAR VOLUME 95.3 fL (81.0-99.0); MEAN PLATELET VOLUME 9.1 fL (7.9-10.8); MONOCYTES # (AUTO) 0.5 10^3/uL (0.0-1.0); MONOCYTES % (AUTO) 9.1 %; NEUTROPHILS # (AUTO) 2.9 10^3/uL (1.5-6.6); PLT - PLATELET COUNT 363 10^3/uL (130-450); RED BLOOD COUNT 4.01 10^6/uL (4.20-5.40); RED CELL DISTRIBUTION WIDTH 12.7 % (12.0-15.0); WHITE BLOOD COUNT 5.5 x10^3/uL (4.8-10.8)
[2022-04-02 11:05] LABS: ALBUMIN 4.3 g/dL (3.2-5.5); ALBUMIN/GLOBULIN RATIO 1.4 (1.0-2.2); ALKALINE PHOSPHATASE 51 IU/L (42-121); ALT ALANINE AMINOTRANSFERASE 17 IU/L (10-60); AST ASPARTATE AMINOTRANSFERASE 20 IU/L (10-42); BILIRUBIN,TOTAL 0.7 mg/dL (0.2-1.0); BUN - BLOOD UREA NITROGEN 24 mg/dL (6-20); CALCIUM 9.9 mg/dL (8.5-10.3); CARBON DIOXIDE - CO2 30 mmol/L (21-32); CHLORIDE 100 mmol/L (101-111); CHOL/HDL RATIO 6.8 (<4.4); CHOLESTEROL 374 mg/dL; CREATININE 1.4 mg/dL (0.4-1.0); GFR - MDRD 36 (>89); GLUCOSE 104 mg/dL (70-100); HDL CHOLESTEROL 55 mg/dL; LDL CHOLESTEROL,CALCULATED 260 mg/dL; LDL/HDL RATIO 4.7 (<4.4); POTASSIUM 4.2 mmol/L (3.5-5.0); SODIUM 138 mmol/L (135-145); TOTAL PROTEIN 7.4 g/dL (6.7-8.2); TRIGLYCERIDES 294 mg/dL; VLDL CHOLESTEROL 59 mg/dL
[2022-04-02 11:14] LABS: THYROID STIMULATING HORMONE 2.61 uIU/mL (0.34-5.60)
[2022-04-02 11:24] LABS: ESTIMATED AVERAGE GLUCOSE 128 mg/dL (70-100); HEMOGLOBIN A1c% 6.1 % (4.27-6.07)
== END 2022-04-02 10:31 | disposition home or self-care (01) ==
LOC: LAB 10:30
PROVIDERS: ATTEND Registered Nurse
DX: I10 Essential (primary) hypertension (principal); E11.9 Type 2 diabetes mellitus without complications; E78.5 Hyperlipidemia, unspecified; Z79.899 Other long term (current) drug therapy
CPT/HCPCS: 36415; 80053; 80061; 83036; 83721; 84443; 85025

== ENCOUNTER 2022-07-09 09:26 | Emergency (ER) | payer MEDICARE, OTHER ==
[2022-07-09 09:44] VITALS: BP 129/80
--- OUTSIDE RECORDS SUMMARY | 2022-07-09 10:16 | EXTERNAL MEDICAL SUMMARY RPT | Continuity of Care Document ---
:1945 Author Organization [facility] Address [address] [place] [address] Phone Care Team Providers Name Role Phone Unavailable Unavailable Unavailable Akilah Squires Unavailable Unavailable Allergies No information. Encounters No information. Functional Status No information. Immunizations No information. Medications date description facility 2022-05-02 00:00 GLUCOSAMINE SULFATE All 2022-05-03 00:00 GLUCOSAMINE SULFATE All 2022-05-26 00:00 GLUCOSAMINE SULFATE All 2022-05-28 00:00 GLUCOSAMINE SULFATE All 2022-05-02 00:00 FLUOXETINE HCL All 2022-05-03 00:00 FLUOXETINE HCL All 2022-05-26 00:00 FLUOXETINE HCL All 2022-05-28 00:00 FLUOXETINE HCL All 2022-05-02 00:00 GLUCOSAMINE SULFATE All 2022-05-03 00:00 GLUCOSAMINE SULFATE All 2022-05-26 00:00 GLUCOSAMINE SULFATE All 2022-05-28 00:00 GLUCOSAMINE SULFATE All 2022-05-02 00:00 FLUOXETINE HCL All 2022-05-03 00:00 FLUOXETINE HCL All 2022-05-26 00:00 FLUOXETINE HCL All 2022-05-28 00:00 FLUOXETINE HCL All 2022-05-02 00:00 GLUCOSAMINE SULFATE All 2022-05-03 00:00 GLUCOSAMINE SULFATE All 2022-05-26 00:00 GLUCOSAMINE SULFATE All 2022-05-28 00:00 GLUCOSAMINE SULFATE All 2022-05-02 00:00 FLUOXETINE HCL All 2022-05-03 00:00 FLUOXETINE HCL All 2022-05-26 00:00 FLUOXETINE HCL All 2022-05-28 00:00 FLUOXETINE HCL All 2022-05-02 00:00 FLUOXETINE HCL All 2022-05-03 00:00 FLUOXETINE HCL All 2022-05-26 00:00 FLUOXETINE HCL All 2022-05-28 00:00 FLUOXETINE HCL All 2022-05-02 00:00 GLUCOSAMINE SULFATE All 2022-05-03 00:00 GLUCOSAMINE SULFATE All 2022-05-26 00:00 GLUCOSAMINE SULFATE All 2022-05-28 00:00 GLUCOSAMINE SULFATE All Problems date description facility 2022-05-26 00:00 Wax in ear canal All 2022-05-26 00:00 Impacted cerumen All 2022-05-26 00:00 Impacted cerumen, unspecified ear All Procedures date description facility 2022-04-30 00:00 Visit Code Hold All 2022-05-26 00:00 Visit Code Hold All Results/Labs No information. Social History date description facility 2022-04-30 00:00 Former smoker All 2022-05-26 00:00 Former smoker All Vital Signs date measurement value units 2022-04-30 00:00 BMI 26.36 kg/m2 2022-04-30 00:00 BP_diastolic 87 mmHg 2022-04-30 00:00 BP_systolic 133 mmHg 2022-04-30 00:00 heart_rate 92 /min 2022-04-30 00:00 height_metric 162.56 cm 2022-04-30 00:00 height_standard 64 in 2022-04-30 00:00 respiration_rate 16 /min 2022-04-30 00:00 temperature_metric 36.28 C 2022-04-30 00:00 temperature_standard 97.3 F 2022-04-30 00:00 weight_metric 69.4 kg 2022-04-30 00:00 weight_standard 153 lb 2022-05-26 00:00 BMI 26.36 kg/m2 2022-05-26 00:00 BP_diastolic 93 mmHg 2022-05-26 00:00 BP_systolic 144 mmHg 2022-05-26 00:00 heart_rate 102 /min 2022-05-26 00:00 height_metric 162.56 cm 2022-05-26 00:00 height_standard 64 in 2022-05-26 00:00 respiration_rate 16 /min 2022-05-26 00:00 temperature_metric 36.28 C 2022-05-26 00:00 temperature_standard 97.3 F 2022-05-26 00:00 weight_metric 69.4 kg 2022-05-26 00:00 weight_standard 153 lb
--- NOTE | 2022-07-09 10:51 | Ultrasound Report ---
PROCEDURE: Duplex Ext Veins Right INDICATIONS: pain x 1 month TECHNIQUE: Real-time imaging, as well as color and pulse Doppler interrogation, were performed of the lower extr emity deep veins from the inguinal ligament to the popliteal fossa. COMPARISON: None. FINDINGS: The deep veins are normally compressible, and free of intraluminal thrombus. Color and pu lse Doppler demonstrate normal phasic intraluminal flow. There is normal augmentation response to di stal compression maneuver. IMPRESSION: No deep venous thrombosis. Reviewed by: Rochelle Kiser MD on 07/09/2022 10:50 AM [facility] Approved by: Rochelle Kiser MD on 07/09/2022 10:50 AM [facility] Station ID: [id number]
--- NOTE | 2022-07-09 11:44 | ED Physician Documentation ---
PD HPI LOWER EXT INJURY - Stated complaint Stated Complaint: R LEG PX - Chief complaint Chief Complaint: Ext Problem - History obtained from History obtained from: Patient - History of Present Illness PD HPI LOW EXT INJURY LOCATION: Right, Knee, Lower leg Type of injury: Other (onset without injury of right leg pain around knee mostly but also to thigh and side of hip, down to some pain/tingling in lateral toes.). No: Fall, Twist Timing - onset: How many weeks ago (has had the pain for 3-4 weeks, worsening.) Timing - duration: Weeks Timing - details: Gradual onset, Still present Worsened by: Moving, Palpating Associated symptoms: No: Weakness, Numbness, Swelling, Discolored Similar symptoms before: Has not had sx before Review of Systems Constitutional: denies: Fever, Chills, Myalgias Skin: denies: Rash, Lesions Musculoskeletal: denies: Back pain Neurologic: denies: Focal weakness, Numbness PD PAST MEDICAL HISTORY - Past Medical History Cardiovascular: Hypertension, High cholesterol Respiratory: None Endocrine/Autoimmune: Type 2 diabetes GI: GERD, GI bleed : None HEENT: None Psych: Depression Musculoskeletal: Rheumatoid arthritis Derm: None - Past Surgical History Past Surgical History: Yes 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 - Present Medications Home Medications: Ambulatory Orders Medication Instructions Recorded Confirmed Escitalopram [Lexapro] 10 mg PO DAILY 09/10/13 05/15/20 Glucosamine Sulfate Dipot Chlr 1,000 mg PO DAILY 09/10/13 05/15/20 [Glucosamine] buPROPion [Wellbutrin Sr] 150 mg PO DAILY 09/10/13 05/15/20 Albuterol Sulfate [Proventil Hfa 1 - 2 puffs IH Q4H PRN #1 06/28/16 05/15/20 Inhaler] hfa.aer.ad Omeprazole 40 mg PO DAILY 08/06/18 05/15/20 Acetaminophen/Cod 300/30 [Tylenol 1 each PO Q8H PRN #4 tablet 08/07/18 05/15/20 #3] Cholecalciferol (Vitamin D3) 2,000 - 5,000 unit PO DAILY 08/07/18 05/15/20 [Vitamin D3] Lisinopril/Hydrochlorothiazide 1 tab PO DAILY 08/07/18 05/15/20 [Lisinopril-Hctz 20-25 mg Tab] HYDROcod/ACETAM 5/325 [Hudson 5/325] 1 ea PO Q6H PRN #18 tablet 07/09/22 dexAMETHasone [Decadron] 4 mg PO DAILY #5 tablet 07/09/22 - Allergies Allergies/Adverse Reactions: Allergies Allergy/AdvReac Type Severity Reaction Status Date / Time Penicillins Allergy Intermediate Rash Verified 07/09/22 09:44 Sulfa (Sulfonamide AdvReac Intermediate Nausea Verified 07/09/22 09:44 Antibiotics) - Social History Does the pt smoke?: No Smoking Status: Former smoker Does the pt drink ETOH?: Yes PD ED PE NORMAL - Vitals Vital signs reviewed: Yes - General General: Alert and oriented X 3, Well developed/nourished, Other (appears in pain due to knee/thigh) - Abdomen Abdomen: Normal bowel sounds, Soft, Non tender - Derm Derm: Normal color, Warm and dry - Extremities Extremities: Other (knee without effusion nor pain on stress testing. She has tenderness lateral/anterior thigh to knee and front of leg, c/w L4 area. Tender lateral hip. Not tender in lumbar area. ) - Neuro Neuro: Alert and oriented X 3, No motor deficit, No sensory deficit Results - Vitals Vitals: Oxygen O2 Source Room air PD Medical Decision Making - ED course Complexity details: considered differential (has pain around side of thigh/knee, but originates lateral right hip. Not lumbar lower back though. consider sacroiliitis as cause of the radiculitis rather than central spine disc/etc. ), d/w patient ED course: The patient has had a month long duration of right lower leg to lateral thigh pain intermittent at first and progressively more consistent and severe. She has noticed some mild numbness of the lateral toes on the foot. She feels there is some mild weakness with walking. No foot drop per se. She denies any rash sores or redness in that area over the month. She has noticed tenderness to palpation in the calf and the lateral lower leg. Otherwise just aching pain with movement. Consideration would have been for her shingles given the distribution and tenderness but she did not have any rash along the way. At this point if it had been a case of it would be at the neurologist age. Otherwise consideration for nerve root inflammation. She is not hurting in the lower back per se but originates around the sacroiliac and lateral part of the hip down the leg. There may be element of sacroiliitis as opposed to herniated disc or such. Treatment would be similar although the exercises and physical therapy may be directed slightly differently. At this point I would consider treatment with anti-inflammatories. She has been using Tylenol periodically. She should be more consistent with that and we can add hydrocodone pain medicine if needed. She should contact her primary care, Catina Reyes, to see if they would initiate physical therapy as well. Follow-up with primary care in about a week, call for an appointment Departure - Departure Disposition: Home, Self Care Clinical Impression: Pain in lateral right lower extremity, Right lumbar radiculitis Condition: Stable Record reviewed to determine appropriate education?: Yes Instructions: ED Sacroiliitis Follow-Up: Akilah Reyes ARNP [Primary Care Provider] - Prescriptions: dexAMETHasone [Decadron] 4 mg PO DAILY #5 tablet HYDROcod/ACETAM 5/325 [Hudson 5/325] 1 ea PO Q6H PRN #18 tablet PRN Reason: Pain Comments: The pattern of your pain along with the symptoms of some numbness in the toes etc. would be suggestive of an nerve root irritation. This can originate from the low back and disc areas although it can occur because of inflammation through the iliac part of the pelvis (sacroiliitis). Given your pain originating from the hip area down the leg, more inclined to think this may be the case. Physical therapy can still be helpful for this though the range of motion and focus of it is more on hip and pelvic area rather than low back per se. Physical therapist should know how to focus of treatment. Contact your primary care to see if they can order some physical therapy. Otherwise you could have some physical therapy on your own or massage or chiropractic and see if that would help as well. Otherwise were treated with anti-inflammatories as well as pain medicine in addition to some physical modalities. I would start with Decadron steroid anti-inflammatory for the next 5 days. Then go with ibuprofen or naproxen 2 to 3 tablets twice daily with food for the next 7 to 10 days. For pain use Tylenol 500 mg 4 times a day regularly. To that add hydrocodone/acetaminophen every 6-8 hours if needed for worse pain. I sent your prescriptions to [facility]. Follow-up with your primary care in about a week, call for an appointment. See how much improved you are during that time if they need to change medications etc. I am prescribing a short course of narcotic pain medication for you. These are potentially dangerous and addictive medications that should be used carefully. These medications may constipate you. Take an jgkx-nvl-vsinuya stool softener such as docusate twice daily with plenty of water while taking these medications. If you go 24 hours without a bowel movement, take [id number] MiraLAX, per package instructions. Do not drink or drive while taking these medications. If you received narcotic or sedating medications while in the emergency department do not drive for 24 hours. Store this medication in a safe, secure place and out of reach of children. It is a violation of federal law to give or sell this medication to another person or to use in a manner other than prescribed. The ED will not refill narcotic prescriptions, including prescriptions lost or stolen. You can dispose of unwanted medications at the [facility] office or at several pharmacies such as [facility]. Discharge Date/Time: 07/09/22 12:27
[2022-07-09] MEDS ORDERED: DEXAMETHASONE 10 MG/ML VIAL PO STA (12:14)
[2022-07-09] MEDS ORDERED: CHERRY SYRUP 10 ML UDC PO ONE (12:14)
[2022-07-09] MEDS ORDERED: HYDROcod/ACETAM 5/325 MG TABLET PO STA (12:14)
[2022-07-09] MEDS ORDERED: NAPROXEN 250 MG TABLET PO STA (12:14)
[2022-07-09] MEDS ORDERED: ACETAMINOPHEN 325 MG TABLET PO STA (12:14)
== END 2022-07-09 12:27 | disposition home or self-care (01) ==
LOC: ED 09:26
DX: M79.604 Pain in right leg (principal); M54.16 Radiculopathy, lumbar region; I10 Essential (primary) hypertension; E11.9 Type 2 diabetes mellitus without complications; M06.9 Rheumatoid arthritis, unspecified
CPT/HCPCS: 93971; 99283; 99284; A9270

== ENCOUNTER 2022-08-24 11:00 | Outpatient (CLI) | payer MEDICARE, OTHER ==
--- NOTE | 2022-08-24 13:01 | XRAY Report ---
PROCEDURE: Lumbar Spine 2 View INDICATIONS: ARTHRITIS OF RT SACROILIAC TECHNIQUE: 2 views of the lumbar spine were acquired. COMPARISON: None. FINDINGS: Bones: 5 vwk-hri-gbmzixy vertebrae are present. There is moderate levoscoliosis. There is grade 1 anterolisthesis of L4 on L5. No vertebral body compression fractures. No suspicious bony lesions. De generative disc disease is present, moderate at L2-L3, L3-L4, L5 L5 and L5-S1, mild at L1-L2. Moderat e facet arthropathy at L3-L4, L5 L5 and L5-S1. Osteopenia. Soft tissues: Overlying bowel gas pattern is normal. Severe atherosclerotic calcifications. Large a mount stool in colon. IMPRESSION: 1. Scoliosis and degenerative changes. 2. Osteopenia. Reviewed by: Paula Boateng MD on 08/24/2022 12:59 PM PST Approved by: Paula Boateng MD on 08/24/2022 12:59 PM PST Station ID: [id number]
--- NOTE | 2022-08-24 13:03 | XRAY Report ---
PROCEDURE: Pelvis 1 View INDICATIONS: ARTHRITIS OF RT SACROILIAC TECHNIQUE: view(s) of the pelvis acquired. COMPARISON: X-ray lumbar spine, 08/24/2022. X-ray abdomen, 06/19/2019. FINDINGS: Bones: No fractures or dislocations. No suspicious bony lesions. Mild degenerative joint disease i n hips and sacroiliac joints bilaterally. Degenerative changes noted in the lower lumbar spine. Soft tissues: Visualized bowel gas pattern is normal. No suspicious soft tissue calcifications. IMPRESSION: Mild degenerative joint disease. Reviewed by: Paula Boateng MD on 08/24/2022 1:02 PM PST Approved by: Paula Boateng MD on 08/24/2022 1:02 PM PST Station ID: [id number]
== END 2022-08-24 11:01 | disposition home or self-care (01) ==
LOC: DI 11:00
PROVIDERS: ATTEND Registered Nurse
DX: M47.816 Spondylosis without myelopathy or radiculopathy, lumbar region (principal); M85.88 Other specified disorders of bone density and structure, other site; M16.0 Bilateral primary osteoarthritis of hip; M47.898 Other spondylosis, sacral and sacrococcygeal region

== ENCOUNTER 2022-11-15 07:37 | Outpatient (CLI) | payer MEDICARE, OTHER ==
[2022-11-15 08:09] LABS: BASOPHILS # (AUTO) 0.1 10^3/uL (0.0-0.1); BASOPHILS % (AUTO) 1.6 %; EOSINOPHILS # (AUTO) 0.5 10^3/uL (0.0-0.7); EOSINOPHILS % (AUTO) 9.1 %; HCT - HEMATOCRIT 37.2 % (37.0-47.0); LYMPHOCYTES % (AUTO) 35.1 %; MEAN CORPUSCULAR HEMOGLOBIN 30.5 pg (27.0-31.0); MEAN CORPUSCULAR HGB CONC 32.3 g/dL (32.0-36.0); MEAN CORPUSCULAR VOLUME 94.4 fL (81.0-99.0); MEAN PLATELET VOLUME 9.4 fL (7.9-10.8); MONOCYTES # (AUTO) 0.5 10^3/uL (0.0-1.0); MONOCYTES % (AUTO) 7.9 %; NEUTROPHILS # (AUTO) 2.7 10^3/uL (1.5-6.6); NEUTROPHILS % (AUTO) 46.1 %; PLT - PLATELET COUNT 368 10^3/uL (130-450); RED BLOOD COUNT 3.94 10^6/uL (4.20-5.40); RED CELL DISTRIBUTION WIDTH 13.3 % (12.0-15.0); WHITE BLOOD COUNT 5.7 x10^3/uL (4.8-10.8)
[2022-11-15 08:10] LABS: CALCIUM 9.7 mg/dL (8.5-10.3); POTASSIUM 4.2 mmol/L (3.5-5.0)
[2022-11-15 19:33] LABS: ESTIMATED AVERAGE GLUCOSE 140 mg/dL (70-100); HEMOGLOBIN A1c% 6.5 % (4.27-6.07)
== END 2022-11-15 07:38 | disposition home or self-care (01) ==
LOC: LAB 07:37
PROVIDERS: ATTEND Orthopaedic Surgery Orthopaedic Surgery of the Spine
DX: Z01.818 Encounter for other preprocedural examination (principal); R73.9 Hyperglycemia, unspecified
CPT/HCPCS: 36415; 80048; 83036; 85025; 93005